=== PATIENT | female | born 1995 | race Hispanic/Latino ===

== ENCOUNTER 2023-11-17 17:00 | Inpatient (IN) | payer SELFPAY ==
[2023-11-17] MEDS ORDERED: Acetaminophen 500 MG TAB ONE (17:25)
[2023-11-17 17:59] LABS: #Basophils 0.06 10x3/uL (0.0-0.2); #Eosinophils 0.04 10x3/uL (0.0-0.5); #Monocytes 1.05 10x3/uL (0.0-1.1); #Neutrophils 13.76 10x3/uL (1.5-8.4); %Basophils 0.4 % (0.0-2.0); %Eosinophils 0.2 % (0.0-6.0); %Lymphocytes 11.7 % (18.0-47.0); %Monocytes 6.2 % (0.0-10.0); Hematocrit 42.4 % (34.9-44.5); Hemoglobin 14.4 g/dL (12.0-15.5); Mean Corpuscular Hemoglobin 29.1 pg (27.0-33.0); Mean Corpuscular Volume 85.7 fL (81.6-98.3); Mean Platelet Volume 9.1 fL (7.4-10.4); Platelet Count 362 10x3/uL (150-450); RBC Distribution Width 12.4 % (11.5-14.5); Red Blood Cell (RBC) Count 4.95 10x6/uL (3.90-5.03)
[2023-11-17 18:09] LABS: Pregnancy Test - Urine (BHCG) Negative (Negative); Pregu Control Background? CLEAR/WHITE (CLR/WHITE); Pregu Control Bar Appear? YES (CONTROL BAR); Specific Gravity 1.015 (1.002-1.036)
[2023-11-17 18:19] LABS: Troponin I Less than 0.010 ng/mL (< 0.028)
[2023-11-17 18:21] LABS: ALT (SGPT) 57 U/L (8-55); AST (SGOT) 45 U/L (5-34); Alkaline Phosphatase 175 U/L (40-110); Anion Gap 16 mmol/L (10-20); BUN (Urea Nitrogen) 10 mg/dL (7.0-18.7); Bilirubin, Total 1.5 mg/dL (0.2-1.2); Calc. Creatinine Clearance 0 mL/min (70-130); Calcium 9.2 mg/dL (7.8-10.44); Carbon Dioxide 21 mmol/L (22-29); Chloride 105 mmol/L (98-107); Estimated GFR 102; Globulin 3.5 g/dL (2.4-3.5); Glucose 95 mg/dL (70-105); Potassium 3.8 mmol/L (3.5-5.1); Protein, Total 7.5 g/dL (6.0-8.3); Sodium 138 mmol/L (136-145)
[2023-11-17 18:41] LABS: Bilirubin Neg (Negative); Blood, Urine 250 (Negative); Clarity Cloudy (Clear); Glucose, Urine (Dipstick) Normal (Negative); Ketone, Urine Negative (Negative); Leukocyte 500 (Negative); Nitrite Positive (Negative); Protein, Urine (Dipstick) 100 mg/dl (Neg-Trace); Specific Gravity, Urine 1.015 (1.005-1.030); Urobilinogen Normal mg/dL (Less than 2)
[2023-11-17 18:52] LABS: Bacteria/HPF 2+ HPF (None Seen); CAUTI Indications for Culture Pelvic or flank pain; RBC/HPF 21-50 HPF (0-3); Squamous Epithelial 0-3 HPF (0-3); WBC/HPF Greater Than 50 HPF (0-3)
[2023-11-17] MEDS ORDERED: Dicyclomine 20 MG/2 ML VIAL ONE (18:52)
[2023-11-17 18:54] LABS: Urine Culture Reflex Yes Yes
[2023-11-17] MEDS ORDERED: cefTRIAXone (ROCEPHIN) 2 GM VIAL ONE (20:18)
[2023-11-17] MEDS ORDERED: Morphine 4 MG/ML VIAL ONE (20:18)
[2023-11-17] MEDS ORDERED: Ondansetron PF 4 MG/2 ML Vial ONE (20:18)
[2023-11-17] MEDS ORDERED: traMADol HCl 50 MG TAB PO PRN (22:00)
[2023-11-17 23:26] VITALS: BMI 34.3
[2023-11-18 00:01] LABS: HBsAg Index 0.25 S/CO (0-0.99); Hep B Surf Ag Non-Reactive S/CO (NonReactive)
[2023-11-18 04:22] LABS: Hematocrit 34.9 % (34.9-44.5); Hemoglobin 11.8 g/dL (12.0-15.5); Mean Corpuscular HGB CONC 33.8 g/dL (32.0-36.0); Mean Corpuscular Hemoglobin 29.4 pg (27.0-33.0); Mean Corpuscular Volume 86.8 fL (81.6-98.3); Mean Platelet Volume 9.1 fL (7.4-10.4); Platelet Count 318 10x3/uL (150-450); RBC Distribution Width 12.5 % (11.5-14.5); Red Blood Cell (RBC) Count 4.02 10x6/uL (3.90-5.03)
[2023-11-18 05:10] LABS: Band 17 % (5-11); Lymphocytes 10 % (21-51); Monocytes 5 % (0-10); Neutrophil 68 % (42-75)
[2023-11-18 05:11] LABS: MDiff Complete? YES; Platelet Adequacy Comment Appears Adequate; RBC Morph Comment Within Normal Limits
[2023-11-18 05:16] LABS: ALT (SGPT) 35 U/L (8-55); AST (SGOT) 21 U/L (5-34); Albumin 2.9 g/dL (3.5-5.0); Alkaline Phosphatase 120 U/L (40-110); Anion Gap 13 mmol/L (10-20); BUN (Urea Nitrogen) 8 mg/dL (7.0-18.7); Bilirubin, Total 1.1 mg/dL (0.2-1.2); Calc. Creatinine Clearance 163 mL/min (70-130); Calcium 7.7 mg/dL (7.8-10.44); Carbon Dioxide 19 mmol/L (22-29); Chloride 110 mmol/L (98-107); Estimated GFR 117; Globulin 2.9 g/dL (2.4-3.5); Glucose 131 mg/dL (70-105); Potassium 3.3 mmol/L (3.5-5.1); Protein, Total 5.8 g/dL (6.0-8.3); Sodium 139 mmol/L (136-145)
[2023-11-18] MEDS: Potassium Chloride 20 MEQ TAB PO SCH (06:27)
[2023-11-18] MEDS: Ketorolac Tromethamine 30 MG (1 mL) VIAL IVP PRN (06:44)
[2023-11-18] MEDS ORDERED: Electrolyte Replacement Protocol 1 EACH FS SCH (07:45)
[2023-11-18] MEDS ORDERED: Famotidine 20 MG TAB PO SCH (09:00)
[2023-11-18] MEDS: Enoxaparin 40 MG (0.4 mL) SYRINGE SC SCH (09:19)
[2023-11-18 11:16] LABS: Potassium 3.7 mmol/L (3.5-5.1)
[2023-11-18 13:51] LABS: Hep A IgM AB NONREACTIVE (NonReactive); Hep C IgG Ab NONREACTIVE S/CO (NonReactive); Hep C Index 0.13 S/CO (0-0.79); Hepatitis B Core IgM Abs NONREACTIVE S/CO (NonReactive)
[2023-11-18] MEDS: Acetaminophen 325 MG TAB PO PRN (14:00)
[2023-11-18] MEDS: Ondansetron ODT 4 MG TAB PO PRN (14:03)
[2023-11-18] MEDS: Ondansetron PF 4 MG/2 ML Vial IVP PRN (18:21)
[2023-11-18] MEDS ORDERED: Metoclopramide HCl 10 MG (2 mL) VIAL IVP PRN (19:00)
[2023-11-18] MEDS: Sodium Chloride 0.9% 1,000 ML IV SCH (19:09)
[2023-11-18] MEDS: cefTRIAXone\\ROCEPHIN 1 GM in Sodium Chloride 0.9% 100 ML IVPB SCH (21:59)
[2023-11-19] MEDS ORDERED: Ketorolac Tromethamine 15 MG/ML VIAL IVP PRN (16:41)
[2023-11-20 08:11] LABS: #Basophils 0.04 10x3/uL (0.0-0.2); #Neutrophils 5.13 10x3/uL (1.5-8.4); %Basophils 0.5 % (0.0-2.0); %Eosinophils 1.2 % (0.0-6.0); %Lymphocytes 25.7 % (18.0-47.0); %Monocytes 10.8 % (0.0-10.0); %Neutrophils 61.6 % (40.0-75.0); Hematocrit 36.1 % (34.9-44.5); Hemoglobin 12.2 g/dL (12.0-15.5); Mean Corpuscular HGB CONC 33.8 g/dL (32.0-36.0); Mean Corpuscular Hemoglobin 29.4 pg (27.0-33.0); Mean Platelet Volume 9.1 fL (7.4-10.4); Platelet Count 339 10x3/uL (150-450); RBC Distribution Width 12.2 % (11.5-14.5); Red Blood Cell (RBC) Count 4.15 10x6/uL (3.90-5.03); White Blood Cell (WBC) Count 8.3 10x3/uL (3.5-10.5)
[2023-11-20 08:30] LABS: Anion Gap 12 mmol/L (10-20)
[2023-11-20 08:42] LABS: ALT (SGPT) 43 U/L (8-55); AST (SGOT) 16 U/L (5-34); Alkaline Phosphatase 112 U/L (40-110); BUN (Urea Nitrogen) 9 mg/dL (7.0-18.7); Bilirubin, Direct 0.2 mg/dL (0.1-0.3); Bilirubin, Total 0.5 mg/dL (0.2-1.2); Calc. Creatinine Clearance 178 mL/min (70-130); Calcium 8.5 mg/dL (7.8-10.44); Carbon Dioxide 19 mmol/L (22-29); Chloride 111 mmol/L (98-107); Estimated GFR 123; Glucose 103 mg/dL (70-105); Potassium 3.9 mmol/L (3.5-5.1); Protein, Total 6.3 g/dL (6.0-8.3); Sodium 141 mmol/L (136-145)
[2023-11-20 08:50] VITALS: BP 101/59; TEMP 98.3
== END 2023-11-20 10:55 | disposition home or self-care (01) | DRG 872 ==
LOC: CSHERS 17:00 → CSHTELE 22:02
PROVIDERS: ADMIT Internal Medicine; ATTEND Family Medicine
DX: A41.51 Sepsis due to Escherichia coli [E. coli] (principal); N10 Acute pyelonephritis
CPT/HCPCS: 36415; 71045; 74176; 76705; 80048; 80053; 80074; 80076; 81001; 81025; 83605; 84145; 84484; 85025; 87040; 87077; 87086; 87186; 93005; 96365; 96375; J0696; J1885; J2272; J2405; J7030; Q0162